=== PATIENT | female | born 1990 | race Caucasian/White ===

== ENCOUNTER → 2020-08-03 | Outpatient (CLI) | payer BC ==
[2020-08-03 09:58] LABS: BASO # 0.1 (0.02-0.10); EOS # 0.4 (0.04-0.40); EOS % 4.1 % (1.0-5.0); HEMATOCRIT 39.4 % (37.0-47.0); HEMOGLOBIN 12.7 g/dL (12.5-16.0); LYMPH# 2.5 (1.50-4.00); MEAN CELL VOLUME 92 fl (78-100); MEAN CORPUSCULAR HEMOGLOBIN 30 pg (27-31); MEAN CORPUSCULAR HGB CONC 32 g/dL (33-37); MEAN PLATELET VOLUME 9.8 fl (7.4-10.4); MONO # 0.8 (0.20-0.80); NEU # 5.7 (1.40-6.50); PLATELET COUNT 427 K/mm3 (130-400); RED CELL DISTRIBUTION WIDTH 12.9 % (11.5-14.5); WHITE BLOOD COUNT 9.5 K/mm3 (4.8-10.8)
[2020-08-03 10:12] LABS: ALBUMIN 4.7 g/dL (3.5-5.0)
[2020-08-03 10:13] LABS: CALCIUM 9.3 mg/dL (8.3-10.5)
[2020-08-03 10:15] LABS: TOTAL PROTEIN 7.5 g/dL (6.4-8.3)
[2020-08-03 10:16] LABS: TOTAL BILIRUBIN 0.2 mg/dL (0.2-1.2)
[2020-08-03 11:08] LABS: ERYTHROCYTE SEDIMENTATION RATE 5 mm/hr (0-20)
== END ==
LOC: LAB 09:46
PROVIDERS: Internal Medicine
DX: Z00.00 Encounter for general adult medical examination without abnormal findings (principal)

== ENCOUNTER → 2021-10-25 | Outpatient (CLI) | payer BC ==
[2021-10-25 14:28] LABS: BASO # 0.05 K/mm3 (0.02-0.10); EOS # 0.42 K/mm3 (0.04-0.40); EOS % 3.7 % (1.0-5.0); HEMATOCRIT 38.5 % (37.0-47.0); HEMOGLOBIN 12.3 g/dL (12.5-16.0); LYMPH# 3.18 K/mm3 (1.50-4.00); MEAN CELL VOLUME 95 fl (78-100); MEAN CORPUSCULAR HEMOGLOBIN 30 pg (27-31); MEAN CORPUSCULAR HGB CONC 32 g/dL (33-37); MEAN PLATELET VOLUME 8.5 fl (7.4-10.4); MONO # 0.78 K/mm3 (0.20-0.80); NEU # 6.77 K/mm3 (1.40-6.50); PLATELET COUNT 674 K/mm3 (130-400); RED BLOOD COUNT 4.04 M/mm3 (4.10-5.30); RED CELL DISTRIBUTION WIDTH 13.7 % (11.5-14.5); WHITE BLOOD COUNT 11.4 K/mm3 (4.8-10.8)
[2021-10-25 14:37] LABS: ALBUMIN 4.2 g/dL (3.5-5.0); POTASSIUM 4.4 mmol/L (3.5-5.1)
[2021-10-25 14:38] LABS: CALCIUM 9.9 mg/dL (8.3-10.5)
[2021-10-25 14:39] LABS: TOTAL PROTEIN 7.6 g/dL (6.4-8.3)
[2021-10-25 14:41] LABS: TOTAL BILIRUBIN 0.3 mg/dL (0.2-1.2)
[2021-10-25 16:42] LABS: URINE APPEARANCE HAZY; URINE COLOR YELLOW
[2021-10-25 16:43] LABS: URINE BILIRUBIN NEGATIVE (NEGATIVE); URINE BLOOD 250 ery/uL (NEGATIVE); URINE GLUCOSE NEGATIVE (NEGATIVE); URINE KETONE NEGATIVE (NEGATIVE); URINE LEUKOCYTE ESTERASE 1+ (NEGATIVE); URINE MUCUS PRESENT (NOT PRESENT); URINE NITRATE NEGATIVE (NEGATIVE); URINE PROTEIN(semi-quant) 2+ (NEGATIVE); URINE UROBILINOGEN NORMAL (NORMAL)
== END ==
LOC: LAB 14:12
PROVIDERS: Internal Medicine
DX: N10 Acute pyelonephritis (principal)

== ENCOUNTER → 2021-12-27 | Outpatient (CLI) | payer BC ==
[~2021-12-27] VITALS: Ht 154.9 cm; Wt 59.0 kg
[~2021-12-27] MED LIST: CLONAZEPAM0.5 M1 PO; DROSPIRENONE-E1 EACH PO; FLONASE ALLERG9.9 ML NS; GOOD NEIGHBOR200 M3 PO; HYDROXYZINE HCL25 M1 PO; MYDAYIS ER 1212.5 MG PO; OMEPRAZOLE40 MG PO; OXYCODONE-ACET1 EACH PO; SINGULAIR PO; TRIAMCINOLONE A60 M2 TP; VYVANSE40 MG PO; WELLBUTRIN SR150 M3 PO
[2021-12-27 14:30] LABS: BASO # 0.04 K/mm3 (0.02-0.10); EOS # 0.11 K/mm3 (0.04-0.40); EOS % 0.6 % (1.0-5.0); HEMATOCRIT 36.8 % (37.0-47.0); HEMOGLOBIN 11.8 g/dL (12.5-16.0); LYMPH# 1.58 K/mm3 (1.50-4.00); MEAN CELL VOLUME 96 fl (78-100); MEAN CORPUSCULAR HEMOGLOBIN 31 pg (27-31); MEAN CORPUSCULAR HGB CONC 32 g/dL (33-37); MEAN PLATELET VOLUME 9.5 fl (7.4-10.4); MONO # 1.46 K/mm3 (0.20-0.80); NEU # 13.91 K/mm3 (1.40-6.50); PLATELET COUNT 460 K/mm3 (130-400); RED BLOOD COUNT 3.85 M/mm3 (4.10-5.30); RED CELL DISTRIBUTION WIDTH 12.9 % (11.5-14.5); WHITE BLOOD COUNT 17.2 K/mm3 (4.8-10.8)
[2021-12-27 14:41] VITALS: BP 122/79
[2021-12-27 14:48] LABS: ALBUMIN 4.1 g/dL (3.5-5.0); POTASSIUM 4.3 mmol/L (3.5-5.1)
[2021-12-27 14:49] LABS: CALCIUM 10.1 mg/dL (8.3-10.5)
[2021-12-27 14:50] LABS: TOTAL PROTEIN 7.5 g/dL (6.4-8.3)
[2021-12-27 14:52] LABS: TOTAL BILIRUBIN 0.3 mg/dL (0.2-1.2)
[2021-12-27 15:16] LABS: URINE COLOR YELLOW
[2021-12-27 15:17] LABS: URINE APPEARANCE CLEAR; URINE BILIRUBIN NEGATIVE (NEGATIVE); URINE BLOOD 250 ery/uL (NEGATIVE); URINE GLUCOSE NEGATIVE (NEGATIVE); URINE KETONE NEGATIVE (NEGATIVE); URINE LEUKOCYTE ESTERASE 1+ (NEGATIVE); URINE NITRATE POSITIVE (NEGATIVE); URINE PROTEIN(semi-quant) 2+ (NEGATIVE); URINE UROBILINOGEN NORMAL (NORMAL)
[2021-12-27 15:18] LABS: URINE WBC 16-30 /hpf (0-3)
== END ==
LOC: LAB 14:20
PROVIDERS: Internal Medicine
DX: N10 Acute pyelonephritis (principal); E86.0 Dehydration
CPT/HCPCS: J1885; J1956; J7030

== ENCOUNTER → 2023-09-15 | Outpatient (CLI) | payer BC | LOC: RAD 08:55 | DX: K80.20 Calculus of gallbladder without cholecystitis without obstruction (principal); R16.0 Hepatomegaly, not elsewhere classified ==

== ENCOUNTER → 2023-09-19 | Outpatient (CLI) | payer BC ==
[2023-09-19 17:32] LABS: BASO # 0.03 K/mm3 (0.02-0.10); EOS # 0.22 K/mm3 (0.04-0.40); EOS % 2.5 % (1.0-5.0); HEMOGLOBIN 13.3 g/dL (12.5-16.0); LYMPH# 2.48 K/mm3 (1.50-4.00); MEAN CELL VOLUME 91 fl (78-100); MEAN CORPUSCULAR HEMOGLOBIN 30 pg (27-31); MEAN CORPUSCULAR HGB CONC 32 g/dL (33-37); MEAN PLATELET VOLUME 10.3 fl (7.4-10.4); MONO # 0.56 K/mm3 (0.20-0.80); PLATELET COUNT 434 K/mm3 (130-400); RED BLOOD COUNT 4.49 M/mm3 (4.10-5.30); RED CELL DISTRIBUTION WIDTH 12.4 % (11.5-14.5); WHITE BLOOD COUNT 8.8 K/mm3 (4.8-10.8)
[2023-09-19 17:36] LABS: ALBUMIN 4.7 g/dL (3.5-5.0)
[2023-09-19 17:39] LABS: TOTAL PROTEIN 7.6 g/dL (6.4-8.3)
[2023-09-19 17:40] LABS: TOTAL BILIRUBIN 0.3 mg/dL (0.2-1.2)
== END ==
LOC: LAB 17:14
PROVIDERS: Internal Medicine
DX: R10.11 Right upper quadrant pain (principal)